=== PATIENT | female | born 1985 | race Caucasian/White ===

== ENCOUNTER 2017-12-12 13:19 | Emergency (ER) | payer OTHER ==
[~2017-12-12] VITALS: Ht 167.6 cm; Wt 101.2 kg
[2017-12-12 13:32] LABS: URINE BILIRUBIN NEGATIVE (Negative); URINE BLOOD 3+ (Negative); URINE CLARITY CLEAR; URINE COLOR YELLOW; URINE GLUCOSE-RANDOM* NEGATIVE (Negative); URINE KETONES TRACE (Negative); URINE LEUKOCYTES NEGATIVE (Negative); URINE NITRITE NEGATIVE (Negative); URINE PROTEIN (DIPSTICK) NEGATIVE (Negative); URINE SPECIFIC GRAVITY 1.025 (1.005-1.035); URINE UROBILINOGEN 0.2 E.U./dl (0.2-1.0)
[2017-12-12 13:50] LABS: CASTS None Seen /LPF (None Seen); CRYSTALS None Seen /LPF (None Seen); SQUAMOUS 4-10 Moderate /LPF (0-3)
[2017-12-12 13:51] LABS: URINE WBC 0-5 Rare /HPF (0-5)
[2017-12-12 13:52] LABS: URINE RBC 3-10 Few /HPF (0-2)
[2017-12-12 13:53] LABS: BACTERIA 1-9 Few /HPF (None Seen)
[2017-12-12 13:54] LABS: ABSOLUTE NEUTROPHILS 7.5 thou/uL (1.4-8.2); BASOPHILS 0.8 % (0.0-2.0); HEMATOCRIT 41.1 % (37.0-47.0); HEMOGLOBIN 13.7 gm/dL (12.0-15.0); LYMPHOCYTES 20.2 % (24.0-44.0); MCH 30.2 pg (26.0-34.0); MCHC 33.4 g/dL (28.0-37.0); MCV 90.3 fL (80.0-100.0); MONOCYTES 7.1 % (1.0-8.0); PLATELET COUNT 264 thou/uL (150-400); POLYS 68.9 % (36.0-66.0); RBC 4.55 mil/uL (4.20-5.00); WBC 10.9 thou/uL (4.0-11.0)
[2017-12-12 14:04] LABS: CALCIUM 9.4 mg/dL (8.5-10.1); CREATININE 0.4 mg/dL (0.6-1.0); POTASSIUM 3.9 mmol/L (3.5-5.1)
[2017-12-12 14:11] LABS: ALBUMIN 3.3 g/dL (3.4-5.0); TOTAL BILIRUBIN 0.3 mg/dL (<0.1-1.0); TOTAL PROTEIN 6.8 g/dL (6.4-8.2)
[2017-12-12] MEDS ORDERED: KEFLEX500 M1 PO (15:21)
[2017-12-12 15:36] VITALS: BP 129/86
== END 2017-12-12 15:38 | disposition home or self-care (01) ==
LOC: ER 13:19
PROVIDERS: Physician Assistant
DX: O20.0 Threatened abortion (principal); O43.891 Other placental disorders, first trimester; O23.41 Unspecified infection of urinary tract in pregnancy, first trimester; Z3A.09 9 weeks gestation of pregnancy